=== PATIENT | male | born 1965 | race Caucasian/White ===

== ENCOUNTER 2019-05-02 01:58 | Emergency (ER) | payer OTHER ==
[~2019-05-02] VITALS: Ht 172.7 cm; Wt 81.6 kg
--- NOTE | 2019-05-02 02:27 | NUR ---
Called Gauge [employer] Weigh Machine Operator for sitter, no sitter available at this time. Security at bedside.
--- NOTE | 2019-05-02 02:30 | NUR ---
Pt is A/O x 4 and speaking in complete sentences. Pt states he is feeling depressed with auditory hallucinations. Pt states that the voices are constantly reminding him that he is depressed. Pt states he has not been taking his antidepressant medications (zyprexa and elavil). Pt states he is having thoughts of hurting himself by overdosing on medications. Suicide precautions implemented. All belongings at nursing station. 1:1 sitter (security) at close proximity for safety. Safe environment implemented.
--- NOTE | 2019-05-02 02:45 | NUR ---
Pt states he is unable to provide urine at this time and will attempt later.
[2019-05-02 03:06] LABS: CARBON DIOXIDE 27 mmol/L (21-32); CHLORIDE 106 mmol/L (98-107); CREATININE 0.8 mg/dL (0.6-1.3); GLUCOSE 90 mg/dL (74-106); POTASSIUM 3.8 mmol/L (3.5-5.1); UREA NITROGEN, BLOOD 13 mg/dL (7-18)
[2019-05-02 03:10] LABS: BASOPHILS % (AUTO) 0.8 % (0.0-2.0); EOSINOPHILS # (AUTO) 0.1 K/uL (0.0-0.7); HEMATOCRIT 33.1 % (36.7-47.1); HEMOGLOBIN 11.3 g/dL (12.5-16.3); LYMPHOCYTES # (AUTO) 1.8 K/uL (20.0-40.0); LYMPHOCYTES % (AUTO) 30.3 % (20.5-51.5); MEAN CORPUSCULAR HGB CONC 34 g/dL (32.5-36.3); MEAN CORPUSCULAR VOLUME 84.7 fL (73.0-96.2); MONOCYTES # (AUTO) 0.4 K/uL (2.0-10.0); MONOCYTES % (AUTO) 7.1 % (0.0-11.0); NEUTROPHILS # (AUTO) 3.7 K/uL (1.8-8.9); NEUTROPHILS % (AUTO) 60.8 % (38.5-71.5); PLATELET COUNT (AUTO) 403 K/uL (152-348); RED BLOOD CELL COUNT(AUTO) 3.91 MIL/uL (4.06-5.63); WHITE BLOOD COUNT (AUTO) 6.1 K/uL (3.6-10.2)
[2019-05-02 03:11] LABS: ETHANOL < 3 MG/DL (0-0)
[2019-05-02 03:19] LABS: THYROID STIMULATING HORMONE 2.336 mIU/mL (0.358-3.740)
[2019-05-02 03:23] LABS: ALANINE AMINOTRANSFERASE 14 U/L (16-63); ALKALINE PHOSPHATASE 90 U/L (50-136); ASPARTATE AMINOTRANSFERASE 14 U/L (15-37); BILIRUBIN,DIRECT 0.1 mg/dL (0.0-0.2); BILIRUBIN,TOTAL 0.3 mg/dL (0.2-1.0); TOTAL PROTEIN, SERUM 6.6 g/dL (6.4-8.2)
[2019-05-02 03:28] LABS: ACETAMINOPHEN < 2.0 ug/mL (10-30)
[2019-05-02 03:37] LABS: *BILIRUBIN,URIN NEGATIVE (NEGATIVE); *BLOOD, URINE NEGATIVE (NEGATIVE); *CLARITY,URINE CLEAR (CLEAR); *COLOR,URINE YELLOW (YELLOW); *KETONES,URINE NEGATIVE (NEGATIVE); LEUKOCYTE ESTERASE ,URINE NEGATIVE (NEGATIVE); NITRITE, URINE NEGATIVE (NEGATIVE); PH,URINE 5.5 (5.0-8.0); UGLUCOSE NEGATIVE (NEGATIVE)
[2019-05-02 03:42] LABS: BACTERIA,URINE NONE SEEN /HPF (NONE SEEN); RBC,URINE 0-3 /HPF (0-3); SQUAMOUS EPITHELIAL CELL,UR NONE SEEN /HPF (NONE SEEN)
[2019-05-02 03:45] LABS: *AMPHETAMINE, URINE POSITIVE (NEGATIVE); *BARBITURATE, URINE NEGATIVE (NEGATIVE); *CANNABINOID, URINE POSITIVE (NEGATIVE); *COCCAINE, URINE NEGATIVE (NEGATIVE); *OPIATE, URINE NEGATIVE (NEGATIVE); *PHENCYCLIDINE SCREEN,URINE NEGATIVE (NEGATIVE)
--- NOTE | 2019-05-02 04:11 | NUR ---
Pt is sleeping at this time, respirations even and unlabored. 1:1 sitter at close proximity for safety. Safe environment implemented.
--- NOTE | 2019-05-02 06:00 | NUR ---
Pt is sleeping at this time, easily arousable via verbal and tactile stimuli. Respirations even and unlabored. 1:1 sitter at close proximity for safety. Safe environment implemented.
--- NOTE | 2019-05-02 06:23 | NUR ---
Pt medically cleared by Dr. Paul. diamond die maker PET music box mechanic called and left a message to, awaiting call back at this time.
--- NOTE | 2019-05-02 07:18 | NUR ---
Handsoff report given to Neetu HAMILTON
--- NOTE | 2019-05-02 07:22 | NUR ---
for psych evaluation by Pinky. [facility] social work administrator is still to be called after 0800 per previous RN.
--- NOTE | 2019-05-02 07:52 | NUR ---
Patient is resting comfortably on gunrey with eyes closed. PATIENT IS PAIN FREE AT THIS TIME. 1:1 sitter maintained.
--- NOTE | 2019-05-02 08:28 | NUR ---
Patient is eating breakfast with good appetite, denies SI or HI @this time. NAD
--- NOTE | 2019-05-02 09:13 | NUR ---
Psych ostrich farm worker is now here.
--- NOTE | 2019-05-02 09:37 | NUR ---
Patient discharged to home in stable conditon with brisk steady gait. Written and verbal after care instructions given. Patient verbalizes understanding & compliance of instructions. Patient denies being homeless. TAP card provided by [facility] [place] pest management supervisor.
== END 2019-05-02 09:39 | disposition home or self-care (01) ==
LOC: ER 02:05
DX: F32.9 Major depressive disorder, single episode, unspecified (principal); R45.851 Suicidal ideations; F20.9 Schizophrenia, unspecified; F15.10 Other stimulant abuse, uncomplicated; F12.10 Cannabis abuse, uncomplicated
CPT/HCPCS: 36415; 71045; 80048; 80076; 80307; 81000; 81001; 84443; 84484; 85025; 93005; 99284; G0480 ×2; G0481; 70030-TC; A4663